=== PATIENT | female | born 1945 | race African-American/Black ===

== ENCOUNTER 2021-02-05 14:26 | Emergency (ER) | payer MEDICARE, SELFPAY ==
[2021-02-05 14:28] VITALS: BP 139/61; PULSE 64; RESP 18; TEMP 35.9; O2SAT 99
--- NOTE | 2021-02-05 15:06 | PC.NURSE ---
pt seen exiting the dept after meeting with MARITO varghese.
== END 2021-02-05 15:06 | disposition left against medical advice (07) ==
LOC: ANHED 15:43
PROVIDERS: Emergency Provider Nurse Practitioner
DX: R19.00 Intra-abdominal and pelvic swelling, mass and lump, unspecified site (principal)
CPT/HCPCS: 99199

== ENCOUNTER 2022-06-13 04:04 | Emergency (ER) | payer MEDICARE, BC, SELFPAY ==
[2022-06-13] VITALS (20 sets, daily range): BP systolic 98–157; BP diastolic 65–84; PULSE 70–92; RESP 16; O2SAT 93–100
--- NOTE | ~2022-06-13 | XR_ITS ---
EXAMINATION: XR chest 1V portable DATE: 06/13/2022 05:25 INDICATION: Shortness of breath. Cough. TECHNIQUE: A single frontal view of the chest was obtained. COMPARISON: CT abdomen and pelvis 07/03/2016 FINDINGS: There is mild atelectasis in the lower lung zones. No pleural effusion or pneumothorax. The heart size is normal. IMPRESSION: 1. Mild atelectasis in the lower lung zones. Reviewed, dictated and finalized at location A.
--- NOTE | 2022-06-13 05:11 | ECG_ITS ---
Measurements Intervals [place] Rate: 93 P: 28 IA: 165 QRS: -44 QRSD: 97 T: 75 QT: 351 QTc: 438 Interpretive Statements SINUS RHYTHM MARKED LEFT AXIS DEVIATION [QRS AXIS < -30] LEFT VENTRICULAR HYPERTROPHY AND ST-T CHANGE [VOLTAGE CRITERIA PLUS ST/T ABNORMALITY] POOR R-WAVE PROGRESSION, CANNOT RULE OUT AN OLD ANTERIOR LA. NO PREVIOUS ECG AVAILABLE FOR COMPARISON Electronically Signed On 06-13-2022 19:56:33 CDT by Jackie Ferraro M.D.
[2022-06-13] MEDS: IPRATROPIUM BR 0.02% INH SOLN 0.5 MG/2.5 ML VIAL INHALATION (05:24)
[2022-06-13] MEDS: ALBUTEROL SULFATE NEB 2.5 MG/3 ML INH 5 MG INHALATION (05:24)
[2022-06-13] MEDS: BENZONATATE 100 MG CAPSULE 200 MG PO (05:46)
[2022-06-13 05:50] LABS: Basophils Percent Auto 0.2 % (0.2-1.2); Eosinophils Absolute Auto 0.1 K/mm3 (0-0.3); Eosinophils Percent Auto 0.8 % (0-4.4); Hematocrit 35.8 % (37.0-47.0); Hemoglobin 11.5 g/dL (12.0-15.0); Immature Granulocyte Absolute 0.04 K/mm3 (0.00-0.031); Immature Granulocyte Percent A 0.4 % (0-0.5); Lymphocytes Absolute Auto 2.26 K/mm3 (0.9-3.2); Lymphocytes Percent Auto 23.8 % (18.3-44.2); Mean Corpuscular HGB Conc 32.1 g/dl (32-36); Mean Corpuscular Hemoglobin 30.7 pg (26-34); Mean Corpuscular Volume 95.7 fl (80-100); Mean Platelet Volume 9.1 fl (7.4-10.4); Monocytes Percent Auto 10.1 % (2.6-8.5); Neutrophils Absolute Auto 6.1 K/mm3 (1.3-6.7); Neutrophils Percent Auto 64.7 % (45.5-73.1); Platelet Count Result 171 k/mm3 (150-375); Red Blood Count 3.74 M/mm3 (4.2-5.4); Red Cell Distribution Width 13.4 % (11.5-14.5); White Blood Count 9.5 K/mm3 (4.5-10.0)
--- NOTE | 2022-06-13 05:55 | ED.GENADULT ---
HPI - General Adult General Chief complaint: Shortness of Breath/Dyspnea Stated complaint: SOB Time Seen by Provider: 06/13/22 04:56 History of Present Illness HPI narrative: Patient is a 76-year-old female who presents the emergency department with chief complaint of shortness of breath. Patient reports that for the last couple days she has been having a feeling as though she cannot get a good deep breath. Patient states she is had some body aches with this and reports that she went to [facility] and had a COVID test. The patient not receive the results of the test and reports that this evening she started feeling worse stated that the shortness of breath was worse with cough and improved with rest. Related Data Allergies Allergy/AdvReac Type Severity Reaction Status Date / Time codeine AdvReac Unknown Nausea and Unverified 02/05/21 14:33 Vomiting Contrast Media Allergy Unknown Palpitation Uncoded 02/05/21 14:33 s Review of Systems Review of Systems: A 10 system review of systems was completed on the patient and is negative except for what is stated in the HPI. Nursing and ancillary documentation was reviewed. [facility] Social History Social History Gender identity (if verbalized by the patient): Female Exam Narrative: GENERAL: Well-appearing, well-nourished, and in no acute distress. HEAD: Normocephalic, atraumatic. EYES: PERRLA and EOMI. ENT: Nares clear, no rhinorrhea or epistaxis. Mucous membranes moist. NECK: Supple. CHEST: Clear to auscultation. No respiratory distress. HEART: Regular rate and rhythm. No murmur heard. Normal peripheral pulses. ABDOMEN: Soft, nontender, nondistended, normal active bowel sounds. EXTREMITIES: Normal range of motion. No edema. SKIN: Warm, dry, no rash. NEURO: No focal deficits. Alert and oriented x3. PSYCH: Normal mood and affect. Course Vital Signs Vital signs: Vital Signs Blood Pressure 98/84 L 06/13/22 04:31 Pulse Oximetry 100 06/13/22 04:31 Pulse Rate 70 06/13/22 05:50 Respiratory Rate 16 06/13/22 05:42 Blood Pressure 157/65 H 06/13/22 05:46 Pulse Oximetry 100 06/13/22 05:46 Oxygen Delivery Room Air 06/13/22 05:51 Medical Decision Making Vital Signs Vital Signs: Vital Signs Blood Pressure 98/84 L 06/13/22 04:31 Pulse Oximetry 100 06/13/22 04:31 Pulse Rate 70 06/13/22 05:50 Respiratory Rate 16 06/13/22 05:42 Blood Pressure 157/65 H 06/13/22 05:46 Pulse Oximetry 100 06/13/22 05:46 Oxygen Delivery Room Air 06/13/22 05:51 Lab Data Result diagrams: 06/13/22 05:43 06/13/22 05:43 Labs: Lab Results 06/13/22 06/13/22 06/13/22 Range/Units 05:43 05:43 05:43 WBC 9.5 (4.5-10.0) K/mm3 RBC 3.74 L (4.2-5.4) M/mm3 Hgb 11.5 L (12.0-15.0) g/dL Hct 35.8 L (37.0-47.0) % MCV 95.7 (80-100) fl MCH 30.7 (26-34) pg MCHC 32.1 (32-36) g/dl RDW 13.4 (11.5-14.5) % Plt Count 171 (150-375) k/mm3 MPV 9.1 (7.4-10.4) fl Immature Gran % (Auto) 0.4 (0-0.5) % Neut % (Auto) 64.7 (45.5-73.1) % Lymph % (Auto) 23.8 (18.3-44.2) % Graham % (Auto) 10.1 H (2.6-8.5) % Eos % (Auto) 0.8 (0-4.4) % Baso % (Auto) 0.2 (0.2-1.2) % Lymph # (Auto) 2.26 (0.9-3.2) K/mm3 Graham # (Auto) 1.0 H (0.1-0.6) K/mm3 Eos # (Auto) 0.1 (0-0.3) K/mm3 Baso # (Auto) 0.0 (0.0-0.1) K/mm3 Abs Immat Gran (auto) 0.04 H (0.00-0.031) K/mm3 Absolute Neuts (auto) 6.1 (1.3-6.7) K/mm3 Absolute Nucleated RBC 0.0 (0.0-0.012) K/mm3 Nucleated RBC % 0.0 (0.0-0.2) % PT 13.1 (11.1-14.7) Seconds INR 1.0 APTT 34.9 (22.3-36.8) SECONDS Sodium (137-145) mmol/L Potassium (3.4-5.0) mmol/L Chloride (98-107) mmol/L Carbon Dioxide (22-30) mmol/L Anion Gap (8-16) mmol/L BUN (7-17) mg/dL Creatinine (0.7-1.0) mg/dL Estim Cre
[2022-06-13 06:02] LABS: Lactic Acid Reflex 0.9 mmol/L (0.7-2.0)
[2022-06-13 06:03] LABS: Prothrombin Time 13.1 Seconds (11.1-14.7)
[2022-06-13 06:04] LABS: Alanine Aminotransferase 11 U/L (6-35); Alkaline Phosphatase 85 U/L (38-126); Anion Gap 2 mmol/L (8-16); Aspartate Amino Transferase 23 U/L (14-36); Bilirubin,Total 0.7 mg/dL (0.2-1.3); Blood Urea Nitrogen 11 mg/dL (7-17); Calcium 8.9 mg/dL (8.4-10.2); Carbon Dioxide 26 mmol/L (22-30); Chloride 104 mmol/L (98-107); Estimated Glomerular Filt Rate > 60; Glucose 112 mg/dL (65-110); Magnesium 1.7 mg/dL (1.6-2.3); Partial Thromboplastin Time 34.9 SECONDS (22.3-36.8); Sodium 132 mmol/L (137-145)
[2022-06-13 06:14] LABS: NT Pro B Type Natriuretic Pept 308 pg/mL (5-100); Troponin I < 0.012 ng/mL (0.000-0.034)
[2022-06-13 06:20] LABS: Procalcitonin 0.1 ng/mL
[2022-06-13 06:27] LABS: Influenza A QL RT-PCR Negative (Negative); Influenza B QL RT-PCR Negative (Negative); SARS-CoV-2 RNA PCR Positive
== END 2022-06-13 07:08 | disposition home or self-care (01) ==
PROVIDERS: Emergency Provider Emergency Medicine
DX: U07.1 COVID-19 (principal); I51.7 Cardiomegaly; R94.31 Abnormal electrocardiogram [ECG] [EKG]
CPT/HCPCS: 36415; 71045; 80053; 83605; 83735; 83880; 84145; 84484; 85025; 85610; 85730; 87502; 93005; 94640; 99284; A9270; C9803; U0003; U0005